=== PATIENT | male | born 1970 | race Caucasian/White ===

== ENCOUNTER → 2019-09-11 10:08 | Outpatient (BNVA) | payer MEDICAID, SELFPAY | PROVIDERS: Family Provider Nurse Practitioner; PCP Nurse Practitioner; Visit Provider Psychiatry & Neurology Neurology | DX: M51.17 Intervertebral disc disorders with radiculopathy, lumbosacral region (principal); M79.605 Pain in left leg; M79.604 Pain in right leg; F17.210 Nicotine dependence, cigarettes, uncomplicated | CPT/HCPCS: 95886; 95909 ==

== ENCOUNTER 2019-10-16 09:06 | Outpatient (CLI) | payer MEDICAID, SELFPAY ==
--- NOTE | 2019-10-16 09:11 | MR_ITS ---
WS: [id number] MRI LUMBAR SPINE NONCONTRAST HISTORY: lumbar pain COMPARISON: 04/28/2019 TECHNIQUE: Sagittal and axial multisequence imaging is submitted. Severe degenerative disc disease at L2-3. L2 anterolisthesis by 8.4 mm is similar to the prior study. Progression of marrow edema within the L2 and L3 vertebral bodies. Patient has known L2 bilateral pa rs defects. Additional moderate degenerative disc disease at L4-5 with loss of disc space height, ost eophytes and sclerosis. No acute fracture. Conus terminates normally at L1. L1-L2: Facet arthropathy without stenosis. L2-L3: Unroofing of the disc due to anterolisthesis of L2. Disc osteophyte with protrusion extends to the LEFT. There is complete obliteration of the fat in the LEFT foramen and partially in the subarti cular recess. There is disc osteophyte disease with facet arthropathy. L2 and L3 nerve roots cannot b e identified as discrete structures due to the disc disease. There is also cephalad migration of the disc posterior to L2. L3-L4: Annular disc bulging and facet arthropathy. Fluid in the facet joints bilaterally. Mild encroa chment upon the ventral thecal sac, subarticular recesses and foramen. L4-L5: Diffuse annular disc bulging and facet arthropathy. Central disc osteophyte encroaching upon t he ventral thecal sac and extending caudad to the disc level. Disc osteophyte complex extends into th e LEFT subarticular recess abutting the nerve roots. Moderate bilateral foraminal stenosis. L5-S1: Normal. Increased edema within the facet joints and paravertebral soft tissues/muscles of L2-3 and L3-4 great est on the LEFT. Similar to the prior study. MR/MR lumbar spine wo/w con [id number] IMPRESSION: 1. Grade 1 spondylolisthesis of L2 with bilateral pars defects at L2. 2. Severe degenerative disc disease at L2-3 with marrow edema, osteophytes and facet arthropathy and unroofing of the disc. 3. Large disc osteophyte complex extends into the LEFT subarticular recess and foramen of L2-3 with severe stenosis. Severe bilateral foraminal stenosis but greatest on the LEFT. 4. Large disc osteophyte extends into the LEFT subarticular recess and foramen of L4-5 with encroachment upon the nerve roots and significant stenosis. Simil ar to the prior study. Moderate bilateral foraminal stenosis L4-5.
--- NOTE | 2019-10-16 09:15 | CT_ITS ---
WS: [id number] CT LUMBAR SPINE, noncontrast. HISTORY: lumbar pain TECHNIQUE: Contiguous 2.5 mm axial imaging are performed. Sagittal and coronal reformats are submitte d and reviewed. All CT scans at [facility] use at least one of these dose optimization te chniques: automated exposure control; mA and/or kV adjustment per patient size (includes targeted exa ms where dose is matched to clinical indication); or iterative reconstruction. IV contrast: None DLP: 1945.64 mGycm COMPARISON: 04/28/2019 L5 is sacralized. Severe degenerative disc space narrowing at L2-3. There is bone upon bone with scle rosis and subchondral cystic changes. Asymmetric disc space narrowing. Vertebral bodies are attaching on the LEFT. Mild widening of the RIGHT. L2 anterolisthesis by 8.6 mm. Bilateral pars defects at the L2 level. Severe degenerative disc disease at L4-5. L4 retrolisthesis by 3.8 mm. L1-2: No significant stenosis or disc protrusion. Facet joints are mildly widened measuring up to 3.9 mm. L2-3: Anterolisthesis of L2 with marked unroofing of the disc and annular disc bulging and small oste ophytes. Marked facet joint arthropathy. There is significant soft tissue in the LEFT foramen and sub articular recess. There is a asymmetric disc protrusion on the LEFT. Disc protrusion is contacting th e LEFT L2 and L3 nerve roots with severe LEFT foraminal narrowing. Significant narrowing of the RIGHT foramen and subarticular recess but not as significant as on the LEFT. L3-4: Moderate annular disc bulging with mild ligamentum flavum hypertrophy and facet arthropathy. Mi ld bilateral foraminal stenosis, RIGHT greater than LEFT. Mild widening of the facet joints up to 4.2 mm. L4-5: Annular disc bulging and osteophytosis. Disc protrusion and osteophyte extends into the LEFT foster barticular recess. Contact on the LEFT lateral thecal sac by disc and osteophyte. Severe bilateral fo raminal stenosis. L5-S1: Normal. Scattered calcification within the aorta. No aneurysm. There are a few benign-appearing retroperitone al lymph nodes. Largest lymph node measures up to 10.[address]/CT lumbar spine wo con* [id number] IMPRESSION: 1. Severe asymmetric degenerative disc disease at L2-3 with progression since 04/28/2019. Bilateral L2 pars defects with grade 1 spondylolisthesis. 2. Large asymmetric disc protrusion extending into the LEFT subarticular reces s and foramen at L2-3 causing significant stenosis and encroachment. There is a lso additional significant RIGHT foraminal subarticular recess stenosis at L2-3 but not as significant as on the LEFT. 3. Severe bilateral foraminal stenosis at L4-5. Moderate bilateral foraminal s tenosis at L3-4. 4. Mild widening of the facet joints at L1-2 and L4-5.
--- NOTE | 2019-10-16 10:15 | XR_ITS ---
WS: [id number] LATERAL LUMBAR SPINE: 3 view. Lateral radiographs are performed in upright neutral, flexion and extension to the patient's toleranc e. HISTORY: lumbar pain COMPARISON: 06/28/2019 On neutral imaging there is severe degenerative disc disease at L2-3 with bone upon bone. L2 anteroli sthesis by 11.4 mm. Increases to 15.2 mm on flexion and decreases to 10.2 mm on extension. The dee dee listhesis and instability has increased since the prior study. L3 retrolisthesis by 5 mm. Normal alignment on flexion and during extension 6.2 mm retrolisthesis. Severe degenerative disc disease also at L4-5. Patient has known bilateral pars defects at L2. XR/XR lumbar spine f/e only [id number] IMPRESSION: 1. Progression of instability and degenerative changes at L2. Grade 1 spondylo listhesis of L2. 2. Bilateral pars defects at L2. 3. Flexion and extension instability at L3.
== END 2019-10-16 09:07 | disposition home or self-care (01) ==
LOC: RADWPI 09:09
PROVIDERS: Family Provider Nurse Practitioner; PCP Nurse Practitioner; Visit Provider Specialist
DX: M43.16 Spondylolisthesis, lumbar region (principal); M47.896 Other spondylosis, lumbar region; M53.2X6 Spinal instabilities, lumbar region; M51.26 Other intervertebral disc displacement, lumbar region; M25.78 Osteophyte, vertebrae
CPT/HCPCS: 72120; 72131; 72158; A9579

== ENCOUNTER 2020-05-30 07:53 | Outpatient (CLI) | payer MEDICAID, SELFPAY ==
--- NOTE | 2020-05-30 07:58 | NM_ITS ---
WS: [id number] NUCLEAR MEDICINE HIDA SCAN CLINICAL INFORMATION: EPIGASTRIC ABDOMINAL TENDERNESS TECHNIQUE: Following intravenous administration of mCi of technetium 99m mebrofenin, images of the ab domen were obtained over the course of 60 minutes. Next, gallbladder ejection fraction was determined by obtaining preprandial and one-hour postprandial images of the gallbladder following oral ingestio n of Ensure. COMPARISON: None. FINDINGS: Normal hepatic uptake at 5 minutes. Gallbladder is visualized by 10 to 15 minutes. Normal hepatic exc retion.Normal common bile duct and small bowel activity. No evidence of acute cholecystitis or choled ocholithiasis. Gallbladder ejection fraction 96% within normal limits. No evidence of chronic cholecystitis. NM/NM hepatobiliary w phar* [id number] IMPRESSION: 1. No evidence of acute or chronic cholecystitis. 2. Gallbladder ejection fraction 96% within normal limits.
== END 2020-05-30 07:54 | disposition home or self-care (01) ==
LOC: NM 07:55
PROVIDERS: PCP Nurse Practitioner; Visit Provider Nurse Practitioner
DX: R10.30 Lower abdominal pain, unspecified (principal); R10.816 Epigastric abdominal tenderness
CPT/HCPCS: 78227; A9537

== ENCOUNTER → 2021-03-14 08:10 | Outpatient (BNVA) | payer MEDICAID, SELFPAY | PROVIDERS: PCP Nurse Practitioner; Visit Provider Nurse Practitioner Family | DX: R50.9 Fever, unspecified (principal); R51.9 Headache, unspecified; Z20.822 Contact with and (suspected) exposure to COVID-19 | CPT/HCPCS: 87635 ==

== ENCOUNTER 2023-01-14 14:56 | Emergency (ER) | payer MEDICAID, SELFPAY ==
[2023-01-14 15:01] VITALS: BP 85/52; RESP 17; TEMP 36.8
[2023-01-14 15:23] VITALS: BP 94/57; PULSE 99; RESP 20; O2SAT 96
--- NOTE | 2023-01-14 15:50 | XR_ITS ---
WS: [id number] Portable AP upright chest, 01/14/2023 Clinical Data: hypotension Comparison: None. Findings: No nodules, masses or effusions are seen. The heart is normal. The pulmonary vascularity is not increased. No pneumonia or pneumothorax is seen. Monitor leads are on the chest wall. XR/XR chest 1V portable [id number] Impression: Negative chest.
--- NOTE | 2023-01-14 15:50 | CTR_ITS ---
PROCEDURE INFORMATION: Exam: CT Head Without Contrast Exam date and time: 01/14/2023 4:05 PM Age: 52 years old Clinical indication: Pain; Headache; Other: Occipital; Additional info: Occipital DOMINGUEZ TECHNIQUE: Imaging protocol: Computed tomography of the head without contrast. Radiation optimization: All CT scans at this facility use at least one of these dose optimization techniques: automated exposure control; mA and/or kV adjustment per patient size (includes targeted exams where dose is matched to clinical indication); or iterative reconstruction. REPORTING DATA: Count of CT and Cardiac NM exams in prior 12 months: This patient has received 0 known CTs and 0 known cardiac nuclear medicine studies in the 12 months prior to the current study. COMPARISON: No relevant prior studies available. RADIATION DOSE METRICS: Total DLP (mGy-cm): 1063 FINDINGS: Brain: Normal. No hemorrhage. Unremarkable white matter. No mass effect. Cerebral ventricles: No ventriculomegaly. Paranasal sinuses: Visualized sinuses are unremarkable. No fluid levels. Mastoid air cells: Visualized mastoid air cells are well aerated. Bones/joints: Unremarkable. No acute fracture. Soft tissues: Unremarkable. CT/CT head wo con* [id number] IMPRESSION: No acute intracranial abnormality.
--- NOTE | 2023-01-14 15:51 | ECG_ITS ---
[facility] Test Date: 2023-01-14 Pat Name: Cruz Dow Department: Room: Gender: Male Hemodialysis Lab Technician: : 1970 Requested By: Diego Latif Order Number: [id number] Bello MD: Yvette Evangelista M.D. Measurements Intervals [place] Rate: 82 P: 54 AK: 132 QRS: 45 QRSD: 90 T: 70 QT: 341 QTc: 399 Interpretive Statements SINUS RHYTHM No previous ECG available for comparison Electronically Signed On 01-14-2023 20:37:38 CDT by Yvette Evangelista M.D. [id number]
--- NOTE | 2023-01-14 15:51 | W.ED.GENADLT ---
HPI - General Adult General: Chief complaint: General Medical Stated complaint: low BP, nausea, body aches Time Seen by Provider: 01/14/23 15:13 Source: patient Mode of arrival: ambulatory History of Present Illness: This patient made his way to the emergency department because he concerned about low blood pressure over the past few days. He states his blood pressure was as low was in the 60s systolic a couple days ago. He denies any recent illness to include nausea vomiting diarrhea etc. He states he has been taking his medications faithfully as prescribed. He states his blood pressure is usually in the 150/90 range. He states he has been taking all his medications faithfully. He does smoke tobacco but has done so for 40 years. He is drinks alcohol occasionally. He also smokes marijuana occasionally. He states there is been no change in his medications recently. He also complains of some other various somatic complaints he has chronic back pain he has had recent left occipital headaches etc. He apparently was at a clinic earlier today concerned about a tick bite. [facility] PFS: Medical History (Updated 01/14/23 @ 17:50 by Diego Latif DO) Instability of joint Lumbar disc disease with radiculopathy Lumbar spondylolysis Spondylolisthesis, lumbar region Surgical History History of lumbar laminectomy for spinal cord decompression (~1997) Left L4-L5 Family History Family/Other No problems noted. Father Diabetes Social History Alcohol intake: former Former alcohol use details: Recently quit alcohol Substance/Drug Use: never Lives independently: Yes Household members: spouse Marital status: Current occupational status: unemployed Current occupation: unemployed Course Reevaluation(s): Reevaluation #1: AdrenalI discussed current findings with patient to include his significant function. I reviewed with the patient his ibuprofen intake and he states it was only episodic. He states he has been religiously taking his lisinopril up until the last couple days when his blood pressure has been lower. Again he denies any problems with urinary retention and is states he has been urinating normally. Time: 17:49 Reevaluation #2: Bladder scan completed. The patient had approximately 275 mL of urine in the bladder and then spontaneously voided. Unlikely to represent any significant urinary retention. Have a bilateral renal ultrasound pending. Time: 18:03 Consultations: Consultation #1: Spoke with Dr. Espinoza attending hospitalist who agreed with plan for admission Time: 17:50 Vital Signs: Vital signs: Vital Signs Temperature 98.2 F 01/14/23 15:01 Pulse Rate 94 01/14/23 18:00 Respiratory Rate 16 01/14/23 18:00 Blood Pressure 134/74 01/14/23 18:00 Pulse Oximetry 96 01/14/23 18:00 Oxygen Delivery Me thod Room Air 01/14/23 18:00 MDM - General Adult Medical Decision Making This patient presented to our emergency department with a history of feeling weak and having cramping at times and also associated low blood pressure. He had other various somatic complaints including an occipital headache and some chest discomfort. He states he has been faithful to his medications which included lisinopril for hypertension. He denied any recent illness such as vomiting diarrhea etc. that might of caused volume depletion. Denied any history of kidney disease etc. His evaluation here revealed his systolic pressure to be in the 9110 range. His vital signs are otherwise normal. His clinical examination was nonfocal without any evidence of significant dehydration clinically. He has remainder of his physical examination is remarkable for some tenderness in his suboccipital soft tissue on the left. He had normal range of motion of cervical spine. He there was no focal neurologic deficits noted on clinical exam. Differential diagnosis was somewhat broad but certainly volume depletion or other reasons for hypertension such as arrhythmia, myocardial dysfunction etc. were pursued. Laboratories were notable in that he had significant evidence of acute kidney injury with a BUN/creatinine ratio significantly changed from that noted previously in his past records. He also had a slight elevation in his troponin with a unremarkable and nondynamic EKG which likely related to his kidney dysfunction but certainly this needs to be trended for evidence of myocardial dysfunction however there is no evidence at this time of ACS or acute PR. CT of the brain was noted to be normal as well as chest x-ray. Because of his significant BUN and creatinine elevation the patient is being hydrated and will be admitted to the hospital for further evaluation. No evidence at this time to suggest postrenal obstructive issues and a renal ultrasound was ordered to further clarify renal anatomy. Medical Records I reviewed the patient's medical records. Prior normal renal function noted. Lab Data I reviewed the patient's lab results. 01/14/23 15:33 01/14/23 15:33 Radiology Impressions Chest X-Ray 01/14/23 15:50 Impression: Negative chest. Head CT 01/14/23 15:50 IMPRESSION: No acute intracranial abnormality. Laboratory Results WBC 10.9 10^3/uL (4.0-10.0) H 01/14/23 15: RBC 4.91 10^6/uL (4.1-5.3) 01/14/23 15:33 Hgb 14.3 g/dL (11.7-16.6) 01/14/23 15: Hct 43.6 % (42.0-52.0) 01/14/23 15: MCV 88.8 fl (80-94) 01/14/23 15: MCH 29.1 pg (28.0-34.0) 01/14/23 15: MCHC 32.8 g/dL (30.0-36.0) 01/14/23 15: RDW 12.9 % (12.1-15.1) 01/14/23 15:33 Plt Count 348 10^3/cmm (130-400) 01/14/23 15: MPV 9.4 fL (7.4-10.4) 01/14/23 15:33 Neut % (Auto) 67.5 % 01/14/23 15:33 Lymph % (Auto) 22.4 % 01/14/23 15:33 [place] % (Auto) 6.6 % 01/14/23 15: Eos % (Auto) 2.7 % 01/14/23 15:33 Baso % (Auto) 0.4 % 01/14/23 15:33 Neut # (Auto) 7.39 10^3/uL (1.8-7.7) 01/14/23 15:33 Lymph # (Auto) 2.5 10^3/uL (0.8-4.8) 01/14/23 15:33 [place] # (Auto) 0.7 10^3/uL (0.2-0.9) 01/14/23 15:33 Eos # (Auto) 0.3 10^3/uL (0.0-0.8) 01/14/23 15:33 Baso # (Auto) 0.0 10^3/uL (0.0-0.1) 01/14/23 15:33 Nucleated RBC % (auto) 0 % 01/14/23 15:33 Nucleated RBCs # 0.0 /100WBC 01/14/23 15:33 ESR 4 mm/hr (0-10) 01/14/23 15:33 Sodium 132 mmol/L (136-145) L 01/14/23 15:33 Potassium 4.0 mmol/L (3.5-5.1) 01/14/23 15:33 Chloride 93 mmol/L (98-107) L 01/14/23 15:33 Carbon Dioxide 21 mmol/L (22-29) L 01/14/23 15:33 Anion Gap 22.0 (5-19) H 01/14/23 15:33 BUN 60 mg/dL (6-20) H 01/14/23 15:33 Creatinine 4.7 mg/dL (0.7-1.2) H 01/14/23 15:33 GFR Calculation 13.3 mL/min (90-130) L 01/14/23 15:33 Glucose 110 mg/dL (65-115) 01/14/23 15:33 Calculated Osmolality 292 mOsm/kg (285-295) 01/14/23 15:33 Calcium 8.9 mg/dL (8.5-10.5) 01/14/23 15:33 Magnesium 2.3 mg/dL (1.7-2.3) 01/14/23 15:33 Total Bilirubin 0.4 mg/dL (0.15-1.2) 01/14/23 15:33 AST 33 U/L (0-40) 01/14/23 15:33 ALT 21 U/L (0-41) 01/14/23 15:33 Alkaline Phosphatase 104 U/L (40-130) 01/14/23 15:33 Troponin T Baseline 36 ng/L (0-15) H 01/14/23 15:33 C-Reactive Protein 4.3 mg/L (0.0-4.9) 01/14/23 15:33 Total Protein 7.6 g/dL (6.6-8.7) 01/14/23 15:33 Albumin 4.3 g/dL (3.5-5.2) 01/14/23 15:33 Globulin 3.3 g/dL (1.3-4.6) 01/14/23 15:33 TSH 1.47 uIU/mL (0.27-4.20) 01/14/23 15:33 EKG Data EKG 1: I personally reviewed and interpreted this EKG as follows: Interpretation: Contemporaneous review of his resting EKG reveals a ventricular rate of 82 bpm with normal MS interval, QRS duration, corrected QT interval. Normal axis. No acute ST-T wave changes noted. Computer generated interpretation: Chest X-Ray 01/14/23 15:50 Impression: Negative chest. Head CT 01/14/23 15:50 IMPRESSION: No acute intracranial abnormality. Discharge Plan Discharge Patient Disposition: Admitted As Inpatient Clinical Impression: Acute kidney injury Condition: Stable Coding Level of Care Code ED Real Estate Economist for Andrew Whiting
[2023-01-14] MEDS: sodium chloride 0.9% 1,000 ML 999 ML IV (16:25)
[2023-01-14 16:38] LABS: Basophils % 0.4 %; Eosinophils # 0.3 10^3/uL (0.0-0.8); Eosinophils % 2.7 %; Hematocrit 43.6 % (42.0-52.0); Hemoglobin 14.3 g/dL (11.7-16.6); Lymphocytes # 2.5 10^3/uL (0.8-4.8); Lymphocytes % 22.4 %; Mean Corpuscular HGB Conc 32.8 g/dL (30.0-36.0); Mean Corpuscular Hemoglobin 29.1 pg (28.0-34.0); Mean Corpuscular Volume 88.8 fl (80-94); Mean Platelet Volume 9.4 fL (7.4-10.4); Monocytes # 0.7 10^3/uL (0.2-0.9); Monocytes % 6.6 %; Neutrophils # 7.39 10^3/uL (1.8-7.7); Neutrophils % 67.5 %; Nucleated Red Blood Cells % 0 %; Platelet Count 348 10^3/cmm (130-400); Red Blood Count 4.91 10^6/uL (4.1-5.3); Red Cell Distribution Width 12.9 % (12.1-15.1); White Blood Count 10.9 10^3/uL (4.0-10.0)
[2023-01-14 16:42] VITALS: BP 99/59; PULSE 71; RESP 24; O2SAT 91
[2023-01-14 16:49] LABS: Erythrocyte Sedimentation Rate 4 mm/hr (0-10)
[2023-01-14 17:03] LABS: Troponin(5th) Baseline 36 ng/L (0-15)
[2023-01-14 17:11] LABS: Alanine Aminotransferase 21 U/L (0-41); Albumin Level 4.3 g/dL (3.5-5.2); Alkaline Phosphatase 104 U/L (40-130); Aspartate Amino Transferase 33 U/L (0-40); Blood Urea Nitrogen 60 mg/dL (6-20); C Reactive Protein 4.3 mg/L (0.0-4.9); Calcium 8.9 mg/dL (8.5-10.5); Carbon Dioxide 21 mmol/L (22-29); Chloride 93 mmol/L (98-107); Globulin 3.3 g/dL (1.3-4.6); Glomerular Filtration Rate 13.3 mL/min (90-130); Glucose 110 mg/dL (65-115); Magnesium 2.3 mg/dL (1.7-2.3); Osmolality Calculated 292 mOsm/kg (285-295); Sodium 132 mmol/L (136-145); Thyroid Stimulating Hormone 1.47 uIU/mL (0.27-4.20); Total Bilirubin 0.4 mg/dL (0.15-1.2); Total Protein 7.6 g/dL (6.6-8.7)
--- NOTE | 2023-01-14 17:51 | PC.NURSE ---
Bladder scanner showed 272 mL in bladder
[2023-01-14 18:00] VITALS: BP 134/74; PULSE 94; RESP 16; O2SAT 96
--- NOTE | 2023-01-14 18:34 | PC.NURSE ---
PT CAME TO ME IN [facility] STATING, I NEED LET OUT IM LEAVING ASKED PT IF THEY WOULD SIGN AMA AND HE STATED, NO IM FINE IM LEAVING .
[2023-01-14 21:17] LABS: Hepatitis A Antibody IgM Non-Reactive (Nonreactive); Hepatitis B Core IgM Non-Reactive (Nonreactive); Hepatitis B Surface Antigen Non-Reactive (Nonreactive); Hepatitis C Virus Antibody Non-Reactive (Nonreactive)
[2023-01-19 10:19] LABS: THYROID PEROXIDASE ANTIBODIES 3 IU/mL (<9)
[2023-01-19 12:21] LABS: COMPLEMENT COMPONENT C3C 123 mg/dL (82-185); COMPLEMENT COMPONENT C4C 31 mg/dL (15-53)
[2023-01-19 13:13] LABS: CENTROMERE B ANTIBODY <1.0 NEG AI (<1.0 NEG); COMPLEMENT, TOTAL (CH50) >60 U/mL (31-60); JO-1 ANTIBODY <1.0 NEG AI (<1.0 NEG); RNP ANTIBODY <1.0 NEG AI (<1.0 NEG); SCL-70 ANTIBODY <1.0 NEG AI (<1.0 NEG); SJOGREN'S ANTIBODY (SS-A) <1.0 NEG AI (<1.0 NEG); SM ANTIBODY <1.0 NEG AI (<1.0 NEG); SS-B <1.0 NEG AI (<1.0 NEG)
[2023-01-19 15:39] LABS: ANA SCREEN, IFA NEGATIVE (NEGATIVE)
[2023-01-20 12:25] LABS: DNA AB (DS) CRITHIDIA,IFA NEGATIVE (NEGATIVE)
== END 2023-01-14 18:38 | disposition left against medical advice (07) ==
PROVIDERS: Emergency Provider Emergency Medicine; PCP Nurse Practitioner
DX: N17.9 Acute kidney failure, unspecified (principal)
CPT/HCPCS: 36415; 51798; 70450; 71045; 80053; 80074; 83735; 84443; 84484; 85025; 85651; 86140; 86160; 86162; 86235; 86255; 86376; 86618; 86666; 86757; 93005; 96360; 99285; J7030

== ENCOUNTER → 2023-03-09 09:24 | Outpatient (BNVA) | payer MEDICAID, SELFPAY | PROVIDERS: PCP Nurse Practitioner; Visit Provider Internal Medicine Cardiovascular Disease | DX: R77.8 Other specified abnormalities of plasma proteins (principal); I10 Essential (primary) hypertension; F10.11 Alcohol abuse, in remission; F15.11 Other stimulant abuse, in remission; F17.210 Nicotine dependence, cigarettes, uncomplicated | CPT/HCPCS: 99204 ==

== ENCOUNTER 2023-04-12 11:28 | Outpatient (CLI) | payer MEDICAID, SELFPAY ==
[2023-04-12 12:04] VITALS: BMI 23.7
--- NOTE | 2023-04-12 12:04 | ECG_ITS ---
[facility] Test Date: 2023-04-12 Pat Name: Cruz Dow Department: Room: Gender: Male College Sports Assistant: : 1970 Requested By: Yvette Evangelista Order Number: [id number] Bello MD: Yvette Evangelista M.D. Interpretive Statements NAME OF STUDY: TREADMILL STRESS TEST INDICATION: Chest Pain; Elevated Troponin I Baseline blood pressure of 159/112 mm Hg, heart rate of 80 beats per minute and oxygen saturation of 92%. EKG showed sinus rhythm, normal axis with possible old septal infarct. The patient exercised for on a standard Abel protocol. Patient attained a maximum heart rate of 108 beats per minute(63% of the maximum predicted heart rate) with a blood pressure at the peak exercise of 161/113 mm Hg. The EKG at the peak exercise revealed sinus tachycardia with no significant ST-T wave changes. Patient did not have any chest pain or any significant arrhythmis with the exercise. He developed intraprocedural shortness of breath and intense back pain due to which the study needed to be terminated During the recovery phase, there were no new changes. Blood pressure at the end of the recovery phase was 54/107 mm Hg with a heart rate of 82 beats per minute oxygen saturation of 92%. CONCLUSION: 1. Normal EKG response to treadmill exercise with submaximal exercise. Patient reached 63% of maximum predicted heart rate after exercising for 3 minutes and 11 seconds. 2. No exercise-induced chest pain or cardiac arrhythmia. He did develop intraprocedural shortness of breath and back pain. 3. Decreased exercise tolerance. 4. Baseline hypertension with normal response to exercise. Electronically Signed On 04-20-2023 16:48:08 CDT by Yvette Evangelista M.D. [id number]
[2023-04-12 12:45] VITALS: BP 158/85; PULSE 98
== END 2023-04-12 11:29 | disposition home or self-care (01) ==
PROVIDERS: PCP Nurse Practitioner; Visit Provider Internal Medicine Cardiovascular Disease
DX: R07.9 Chest pain, unspecified (principal); R79.89 Other specified abnormal findings of blood chemistry
CPT/HCPCS: 93017

== ENCOUNTER → 2023-05-07 10:27 | Outpatient (BNVA) | payer MEDICAID, SELFPAY | PROVIDERS: PCP Nurse Practitioner; Visit Provider Nurse Practitioner | DX: S61.111A Laceration without foreign body of right thumb with damage to nail, initial encounter (principal); X58.XXXA Exposure to other specified factors, initial encounter | CPT/HCPCS: 73130 ==

== ENCOUNTER → 2024-03-29 11:00 | Outpatient (BNVA) | payer MEDICAID, SELFPAY | PROVIDERS: PCP Nurse Practitioner; Visit Provider Nurse Practitioner Family | DX: D48.5 Neoplasm of uncertain behavior of skin (principal); D22.5 Melanocytic nevi of trunk; L81.4 Other melanin hyperpigmentation; A63.0 Anogenital (venereal) warts | CPT/HCPCS: 11102; 99203 ==

== ENCOUNTER → 2025-04-24 11:10 | Outpatient (BNVA) | payer MEDICAID, SELFPAY | PROVIDERS: PCP Nurse Practitioner; Visit Provider Nurse Practitioner Family | DX: D22.5 Melanocytic nevi of trunk (principal); L81.4 Other melanin hyperpigmentation | CPT/HCPCS: 99213 ==